=== PATIENT | female | born 1965 | race Two or more races ===

== ENCOUNTER 2021-05-31 08:36 | Outpatient (CLI) | payer OTHER ==
--- NOTE | 2021-05-31 10:22 | Ultrasound Report ---
PROCEDURE: Head or Neck Soft Tissue INDICATIONS: LOCALIZED SWELLING MASS OR LUMP TECHNIQUE: Real time scanning was performed of the neck region of interest, with image documentation . COMPARISON: None. FINDINGS: Normal appearing lymph nodes seen in right neck at the level of carotid bifurcation is seen measures 1.6 x 1.4 x 0.8 cm in size. No soft tissue mass or fluid collection. IMPRESSION: Benign-appearing lymph nodes seen in right neck soft tissue at patient's reported area of palpable yenifer mp as above. Reviewed by: Carlos Morelos MD on 05/31/2021 10:21 AM PDT Approved by: Carlos Morelos MD on 05/31/2021 10:21 AM PDT Station ID: [id number]
== END 2021-05-31 08:37 | disposition home or self-care (01) ==
LOC: DI 08:36
PROVIDERS: ATTEND Family Medicine
DX: R22.1 Localized swelling, mass and lump, neck (principal)

== ENCOUNTER 2024-01-01 18:34 | Outpatient (CLI) | payer OTHER ==
--- NOTE | 2024-01-02 11:23 | XRAY Report ---
PROCEDURE: Ankle 3+V RT INDICATIONS: SPRAIN OF UNSPECIFIED LIGAMENT OF RIGHT ANKLE TECHNIQUE: 3 views of the ankle were acquired. COMPARISON: None. FINDINGS: Bones: No fractures or dislocations. Ankle mortise is normally aligned. No suspicious bony lesions . Soft tissues: No tibiotalar joint effusion. Achilles tendon appears normal. IMPRESSION: No acute bony abnormality. Ankle mortise is congruent. No gross soft tissue abnormalities. Reviewed by: Carlos Morelos MD on 01/02/2024 11:21 AM PDT Approved by: Carlos Morelos MD on 01/02/2024 11:21 AM PDT Station ID: [id number]
== END 2024-01-01 18:35 | disposition home or self-care (01) ==
LOC: DI 18:34
PROVIDERS: ATTEND Nurse Practitioner
DX: S93.401A Sprain of unspecified ligament of right ankle, initial encounter (principal)